=== PATIENT | male | born 2000 | race Caucasian/White ===

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

== ENCOUNTER 2018-09-21 14:06 | Emergency (ER) | payer BC ==
[~2018-09-21] VITALS: Ht 182.9 cm; Wt 88.6 kg
[2018-09-21] MEDS ORDERED: ASPIRIN 81 MG CHEW TABLET PO ONE (16:30)
[2018-09-21 16:51] LABS: BASO % 0.3 % (0.0-1.0); EOS # 0.1 10^3/uL (0.0-0.50); EOS % 0.8 % (0.0-3.0); HEMATOCRIT 45.9 % (42.0-52.0); LYMPH % 46.8 % (24.0-44.0); MEAN CORPUSCULAR HEMOGLOBIN 30.5 pg (27.0-33.0); MEAN CORPUSCULAR HGB CONC 34.9 g/dl (32.0-36.5); MEAN CORPUSCULAR VOLUME 87.6 fl (80.0-96.0); MONO # 0.4 10^3/uL (0.0-0.8); MONO % 6.3 % (0.0-5.0); NEUTROPHILS # 2.9 10^3/uL (1.8-7.7); NEUTROPHILS % 45.5 % (36.0-66.0); PLATELET COUNT, AUTOMATED 219 10^3/uL (150-450); RED BLOOD COUNT 5.24 10^6/uL (4.30-6.10); WHITE BLOOD COUNT 6.4 10^3/uL (4.0-10.0)
[2018-09-21 17:09] LABS: INR 1.07
[2018-09-21 17:11] LABS: AMPHETAMINES LEVEL URINE NEGATIVE (NEGATIVE); BARBITURATES URINE NEGATIVE (NEGATIVE); BENZODIAZEPINES URINE NEGATIVE (NEGATIVE); CANNABINOIDS URINE NEGATIVE (NEGATIVE); COCAINE METABOLITE URINE NEGATIVE (NEGATIVE); METHADONE URINE NEGATIVE (NEGATIVE); OPIATES URINE NEGATIVE (NEGATIVE); PHENCYCLIDINE URINE NEGATIVE (NEGATIVE)
--- NOTE | 2018-09-21 17:11 | REP ---
PA and lateral chest: Comparison is 05/13/2017. The lung arias are clear. The cardiac size is normal. The laly, mediastinum, and skeletal structures are unremarkable. Impression: Negative PA and lateral chest. There is no interval change. Electronically Signed by Selvin Weir MD 09/21/2018 05:01 P
[2018-09-21 17:22] LABS: ALBUMIN 4.6 GM/DL (3.2-5.2); ALT/SGPT 17 U/L (12-78); BILIRUBIN,DIRECT 0.1 MG/DL (0.0-0.2); BILIRUBIN,TOTAL 0.6 MG/DL (0.2-1.0); BLOOD UREA NITROGEN 17 MG/DL (7-18); CALCIUM LEVEL 9.5 MG/DL (8.5-10.1); CARBON DIOXIDE LEVEL 29 MEQ/L (21-32); CHLORIDE LEVEL 105 MEQ/L (98-107); CK-MB VALUE MASS < 1.0 NG/ML (<3.6); CPK CREATINE PHOSPHOKINASE 98 U/L (39-308); CREATININE FOR GFR 1.11 MG/DL (0.70-1.30); FREE T4 0.89 NG/DL (0.78-1.33); GLUCOSE, FASTING 87 MG/DL (70-100); MB/CK RELATIVE INDEX 1.02 (< OR =4); POTASSIUM SERUM 4.1 MEQ/L (3.5-5.1); SODIUM LEVEL 139 MEQ/L (136-145); TOTAL PROTEIN 7.5 GM/DL (6.4-8.2); TROPONIN I < 0.02 NG/ML (< 0.10)
[2018-09-21] MEDS ORDERED: HOLTER (17:41)
[2018-09-21 17:46] VITALS: BP 98/57
--- NOTE | 2018-09-22 21:17 | ECGEPIP ---
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
== END 2018-09-21 17:57 | disposition home or self-care (01) ==
LOC: M ED 14:06
DX: R00.2 Palpitations (principal); R07.89 Other chest pain; F17.210 Nicotine dependence, cigarettes, uncomplicated

== ENCOUNTER → 2018-09-21 | Outpatient (CLI) | payer BC ==
[~2018-09-21] MED LIST: HOLTER
--- NOTE | 2018-09-23 21:11 | HOLTMON ---
[facility] [place] Test Date: 2018-09-21 Pat Name: RAH GOODRICH Department: Room: - Gender: Gear Tester: Aliya Gill/SIENA WING : 2000 Requested By: GAEL AUGUST Order Number: [id number] Reading MD: Ye Arnold Interpretive Statements Predominantly sinus rhythm with heart rates ranging from 39 bpm to maximum of 129 bpm; average heart rate was 68 bpm. No atrial fibrillation. Rare PACs including one atrial couplet. No ventricular ectopy. Normal heart rhythm recording. Palpitations at 9:36 AM on 09/22/2018 correlated with sinus rhythm at 62 bpm. Electronically Signed On 09-23-2018 21:11:01 EDT by Ye Arnold
== END ==
LOC: M EKG 17:57
PROVIDERS: ATTEND Nurse Practitioner Family
DX: R00.2 Palpitations (principal)

== ENCOUNTER → 2019-07-20 | Outpatient (REF) | payer BC ==
[2019-07-20 13:48] LABS: H PYLORI QUALITATIVE IgG NEGATIVE (NEGATIVE)
== END ==
LOC: M LAB REF 12:34
PROVIDERS: ATTEND Internal Medicine
DX: K21.9 Gastro-esophageal reflux disease without esophagitis (principal)

== ENCOUNTER 2021-04-08 05:02 | Emergency (ER) | payer BC, SELFPAY ==
--- OUTSIDE RECORDS SUMMARY | 2021-04-08 05:06 | CCD ---
Author Author [facility] Organization [facility] Address Unknown Phone Unavailable Care Team Providers Care Post Doctoral Researcher Name Role Phone Maring, Charan PA Unavailable Unavailable Maring, Charan PA Unavailable Unavailable Maring, Charan PA Unavailable Unavailable Maring, Charan PA Unavailable Unavailable Maring, Charan PA Unavailable Unavailable Maring, Charan PA Unavailable Unavailable Maring, Charan PA Unavailable Unavailable Maring, Charan PA Unavailable Unavailable Maring, Charan PA Unavailable Unavailable Maring, Charan PA Unavailable Unavailable Maring, Charan PA Unavailable Unavailable Maring, Charan PA Unavailable Unavailable Maring, Charan PA Unavailable Unavailable Maring, Charan PA Unavailable Unavailable Maring, Charan PA Unavailable Unavailable Maring, Charan PA Unavailable Unavailable LETTIERE, A JESSICA PA Unavailable Unavailable LETTIERE, A JESSICA PA Unavailable Unavailable LETTIERE, A JESSICA PA Unavailable Unavailable LETTIERE, A JESSICA PA Unavailable Unavailable LETTIERE, A JESSICA PA Unavailable Unavailable LETTIERE, A JESSICA PA Unavailable Unavailable LETTIERE, A JESSICA PA Unavailable Unavailable LETTIERE, A JESSICA PA Unavailable Unavailable LETTIERE, A JESSICA PA Unavailable Unavailable LETTIERE, A JESSICA PA Unavailable Unavailable LETTIERE, A JESSICA PA Unavailable Unavailable LETTIERE, A JESSICA PA Unavailable Unavailable LETTIERE, A JESSICA PA Unavailable Unavailable LETTIERE, A JESSICA PA Unavailable Unavailable LETTIERE, A JESSICA PA Unavailable Unavailable LETTIERE, A JESSICA PA Unavailable Unavailable LETTIERE, A JESSICA PA Unavailable Unavailable LETTIERE, A JESSICA PA Unavailable Unavailable LETTIERE, A JESSICA PA Unavailable Unavailable LETTIERE, A JESSICA PA Unavailable Unavailable LETTIERE, A JESSICA PA Unavailable Unavailable LETTIERE, A JESSICA PA Unavailable Unavailable LETTIERE, A JESSICA PA Unavailable Unavailable LETTIERE, A JESSICA PA Unavailable Unavailable LETTIERE, A JESSICA PA Unavailable Unavailable LETTIERE, A JESSICA PA Unavailable Unavailable LETTIERE, A JESSICA PA Unavailable Unavailable LETTIERE, A JESSICA PA Unavailable Unavailable LETTIERE, A JESSICA PA Unavailable Unavailable LETTIERE, A JESSICA PA Unavailable Unavailable LETTIERE, A JESSICA PA Unavailable Unavailable Rodgers, C Katy DO Unavailable Unavailable Rodgers, C Katy DO Unavailable Unavailable Rodgers, C Katy DO Unavailable Unavailable Rodgers, C Katy DO Unavailable Unavailable Rodgers, C Katy DO Unavailable Unavailable Rodgers, C Katy DO Unavailable Unavailable Rodgers, C Katy DO Unavailable Unavailable Rodgers, C Katy DO Unavailable Unavailable Rodgers, C Katy DO Unavailable Unavailable Rodgers, C Katy DO Unavailable Unavailable Rodgers, C Katy DO Unavailable Unavailable Rodgers, C Katy DO Unavailable Unavailable Rodgers, C Katy DO Unavailable Unavailable Rodgers, C Katy DO Unavailable Unavailable Rodgers, C Katy DO Unavailable Unavailable Rodgers, C Katy DO Unavailable Unavailable Rodgers, C Katy DO Unavailable Unavailable Rodgers, C Katy DO Unavailable Unavailable Rodgers, C Katy DO Unavailable Unavailable Rodgers, C Katy DO Unavailable Unavailable Rodgers, C Katy DO Unavailable Unavailable Rodgers, C Katy DO Unavailable Unavailable Rodgers, C Katy DO Unavailable Unavailable Rodgers, C Katy DO Unavailable Unavailable Rodgers, C Katy DO Unavailable Unavailable Rodgers, C Katy DO Unavailable Unavailable Rodgers, C Katy DO Unavailable Unavailable Rodgers, C Katy DO Unavailable Unavailable Rodgers, C Katy DO Unavailable Unavailable Rodgers, C Katy DO Unavailable Unavailable Rodgers, C Katy DO Unavailable Unavailable Rodgers, C Katy DO Unavailable Unavailable Rodgers, C Katy DO Unavailable Unavailable Rodgers, C Katy DO Unavailable Unavailable Rodgers, C Katy DO Unavailable Unavailable Rodgers, C Katy DO Unavailable Unavailable Rodgers, C Katy DO Unavailable Unavailable Rodgers, C Katy DO Unavailable Unavailable Rodgers, C Katy DO Unavailable Unavailable Rodgers, C Katy DO Unavailable Unavailable Rodgers, C Katy DO Unavailable Unavailable Rodgers, C Katy DO Unavailable Unavailable Rodgers, C Katy DO Unavailable Unavailable Rodgers, C Katy DO Unavailable Unavailable Rodgers, C Katy DO Unavailable Unavailable Rodgers, C Katy DO Unavailable Unavailable Rodgers, C Katy DO Unavailable Unavailable Rodgers, C Katy DO Unavailable Unavailable Rodgers, C Katy DO Unavailable Unavailable Rodgers, C Katy DO Unavailable Unavailable Rodgers, C Katy DO Unavailable Unavailable Rodgers, C Katy DO Unavailable Unavailable Rodgers, C Katy DO Unavailable Unavailable Rodgers, C Katy DO Unavailable Unavailable Rodgers, C Katy DO Unavailable Unavailable Rodgers, C Katy DO Unavailable Unavailable DRAZEK, I JOSE PA Unavailable Unavailable DRAZEK, I JOSE PA Unavailable Unavailable DRAZEK, I JOSE PA Unavailable Unavailable DRAZEK, I JOSE PA Unavailable Unavailable DRAZEK, I JOSE PA Unavailable Unavailable DRAZEK, I JOSE PA Unavailable Unavailable DRAZEK, I JOSE PA Unavailable Unavailable DRAZEK, I JOSE PA Unavailable Unavailable DRAZEK, I JOSE PA Unavailable Unavailable DRAZEK, I JOSE PA Unavailable Unavailable DRAZEK, I JOSE PA Unavailable Unavailable DRAZEK, I JOSE PA Unavailable Unavailable DRAZEK, I JOSE PA Unavailable Unavailable DRAZEK, I JOSE PA Unavailable Unavailable DRAZEK, I JOSE PA Unavailable Unavailable DRAZEK, I JOSE PA Unavailable Unavailable DRAZEK, I JOSE PA Unavailable Unavailable DRAZEK, I JOSE PA Unavailable Unavailable DRAZEK, I JOSE PA Unavailable Unavailable DRAZEK, I JOSE PA Unavailable Unavailable DRAZEK, I JOSE PA Unavailable Unavailable DRAZEK, I JOSE PA Unavailable Unavailable DRAZEK, I JOSE PA Unavailable Unavailable DRAZEK, I JOSE PA Unavailable Unavailable DRAZEK, I JOSE PA Unavailable Unavailable DRAZEK, I JOSE PA Unavailable Unavailable DRAZEK, I JOSE PA Unavailable Unavailable DRAZEK, I JOSE PA Unavailable Unavailable DRAZEK, I JOSE PA Unavailable Unavailable DRAZEK, I JOSE PA Unavailable Unavailable Jennifer Wilson MD Unavailable Unavailable Jennifer Wilson MD Unavailable Unavailable Jennifer Wilson MD Unavailable Unavailable Jennifer Wilson MD Unavailable Unavailable Jennifer Wilson MD Unavailable Unavailable Jennifer Wilson MD Unavailable Unavailable Jennifer Wilson MD Unavailable Unavailable Jennifer Wilson MD Unavailable Unavailable Jennifer Wilson MD Unavailable Unavailable Jennifer Wilson MD Unavailable Unavailable Jennifer Wilson MD Unavailable Unavailable Jennifer Wilson MD Unavailable Unavailable Jennifer Wilson MD Unavailable Unavailable Jennifer Wilson MD Unavailable Unavailable Jennifer Wilson MD Unavailable Unavailable Jennifer Wilson MD Unavailable Unavailable Jennifer Wilson MD Unavailable Unavailable Jennifer Wilson MD Unavailable Unavailable Jennifer Wilson MD Unavailable Unavailable Jennifer Wilson MD Unavailable Unavailable Jennifer Wilson MD Unavailable Unavailable Jennifer Wilson MD Unavailable Unavailable Jennifer Wilson MD Unavailable Unavailable Jennifer Wilson MD Unavailable Unavailable Jennifer Wilson MD Unavailable Unavailable RACHEL GUTIERREZ MD Unavailable Unavailable RACHEL GUTIERREZ MD Unavailable Unavailable RACHEL GUTIERREZ MD Unavailable Unavailable RACHEL GUTIERREZ MD Unavailable Unavailable RACHEL GUTIERREZ MD Unavailable Unavailable RACHEL GUTIERREZ MD Unavailable Unavailable RACHEL GUTIERREZ MD Unavailable Unavailable RACHEL GUTIERREZ MD Unavailable Unavailable GUTIERREZRACHEL GUPTA MD Unavailable Unavailable GUTIERREZRACHEL GUPTA MD Unavailable Unavailable GUTIERREZRACHEL UGPTA MD Unavailable Unavailable GUTIERREZRACHEL GUPTA MD Unavailable Unavailable GUTIERREZRACHEL GUPTA MD Unavailable Unavailable GUTIERREZRACHEL GUPTA MD Unavailable Unavailable GUITERREZRACHEL GUPTA MD Unavailable Unavailable GUTIERREZRACHEL GUPTA MD Unavailable Unavailable GUTIERREZRACHEL GUPTA MD Unavailable Unavailable GUTIERREZRACHEL GUPTA MD Unavailable Unavailable GUTIERREZRACHEL GUPTA MD Unavailable Unavailable GUTIERREZRACHEL GUPTA MD Unavailable Unavailable GUTIERREZRACHEL GUPTA MD Unavailable Unavailable RACHEL GUTIERREZ MD Unavailable Unavailable RACHEL GUTIERREZ MD Unavailable Unavailable GUTIERREZRACHEL GUPTA MD Unavailable Unavailable GUTIERREZRACHEL GUPTA MD Unavailable Unavailable GUTIERREZRACHEL GUPTA MD Unavailable Unavailable GUTIERREZRACHEL GUPTA MD Unavailable Unavailable GUTIERREZRACHEL GUPTA MD Unavailable Unavailable GUTIERREZRACHEL GUPTA MD Unavailable Unavailable GUTIERREZRACHEL GUPTA MD Unavailable Unavailable GUTIERREZRACHEL GUPTA MD Unavailable Unavailable Roger Carrollopher PA-C Unavailable Unavailable Roger Carrollopher PA-C Unavailable Unavailable Roger Carrollopher PA-C Unavailable Unavailable Roger Carrollopher PA-C Unavailable Unavailable Roger Carrollopher PA-C Unavailable Unavailable Roger Carrollopher PA-C Unavailable Unavailable Roger Carrollopher PA-C Unavailable Unavailable Roger Carrollopher PA-C Unavailable Unavailable Roger Carrollopher PA-C Unavailable Unavailable Roger Carrollopher PA-C Unavailable Unavailable Roger Carrollopher PA-C Unavailable Unavailable Roger Carrollopher PA-C Unavailable Unavailable Carroll, M Christopher PA-C Unavailable Unavailable Carroll, M Christopher PA-C Unavailable Unavailable Carroll, M Christopher PA-C Unavailable Unavailable Carroll, M Christopher PA-C Unavailable Unavailable Carroll, M Christopher PA-C Unavailable Unavailable Carroll, M Christopher PA-C Unavailable Unavailable Carroll, M Christopher PA-C Unavailable Unavailable Carroll, M Christopher PA-C Unavailable Unavailable Carroll, M Christopher PA-C Unavailable Unavailable Carroll, M Christopher PA-C Unavailable Unavailable Carroll, M Christopher PA-C Unavailable Unavailable Carroll, M Christopher PA-C Unavailable Unavailable Carroll, M Christopher PA-C Unavailable Unavailable Carroll, M Christopher PA-C Unavailable Unavailable Re-disclosure Warning The records that you are about to access may contain information from federally-assisted alcohol or drug abuse programs. If such information is present, then the following federally mandated warning applies: This information has been disclosed to you from records protected by federal confidentiality rules (42 CFR part 2). The federal rules prohibit you from making any further disclosure of this information unless further disclosure is expressly permitted by the written consent of the person to whom it pertains or as otherwise permitted by 42 CFR part 2. A general authorization for the release of medical or other information is NOT sufficient for this purpose. The Federal rules restrict any use of the information to criminally investigate or prosecute any alcohol or drug abuse patient.The records that you are about to access may contain highly sensitive health information, the redisclosure of which is protected by Article 27-F of the [facility] Public Health law. If you continue you may have access to information: Regarding HIV / AIDS; Provided by facilities licensed or operated by the [facility] Office of Mental Health; or Provided by the [facility] Office for People With Developmental Disabilities. If such information is present, then the following [facility] mandated warning applies: This information has been disclosed to you from confidential records which are protected by state law. State law prohibits you from making any further disclosure of this information without the specific written consent of the person to whom it pertains, or as otherwise permitted by law. Any unauthorized further disclosure in violation of state law may result in a fine or detention sentence or both. A general authorization for the release of medical or other information is NOT sufficient authorization for further disc losure. Family History Family Member Name Family Member Gender Family Member Status Date o f Status Description Data Source(s) Unknown Unknown Problem [facility] ([facility]) Unknown Male Encounters Encounter Providers Location Date Indications Data Source(s ) Outpatient Attender: Jodie Wilson MD 0 02/18/2021 11:50:15 AM EDT - 02/18/2021 12:52:26 PM EDT [facility] ([facility]) Outpatient Attender: Charan MCKEON 01/11/20 04:27:18 PM EDT - 01/10/2021 05:08:39 PM EDT [facility] ([facility] ) Outpatient Attender: Devon Carroll PA-C 10/31/2020 04:54:04 PM EDT - 10/31/2020 05:37:06 PM EDT [facility] ([facility]) Office Visit Attender: JOSE MCKEON Physical Therapy 2020 08:00:00 PM EDT [facility] ([facility]) Outpatient Attender: Katy Rodgers DO 08/03 08:15:56 AM EST - 08/03/2020 08:43:31 AM EST [facility] ([facility] ) Office Visit Attender: RACHEL GUTIERREZ MD Physical Therapy 09:45:00 AM EST [facility] ([facility]) Outpatient Attender: JESSICA sales 03/02/2020 03:00:00 PM EDT [facility] ([facility]) Immunizations Vaccine Date Status Description Data Source(s) DIPHTHERIA,PERTUSSIS(ACELLULAR),TETANUS VACCINE 06/21/2020 1 2:00:00 AM EST completed [facility] Medications Medication Brand Name Start Date Product Form Dose Route Admi nistrative Instructions Pharmacy Instructions Status Indications Reaction Description Data Source(s) Fluticasone propionate 0.05 MG/ACTUAT Metered Dose [facility] 50 mcg/actuation FLUTICASONE PROPIONATE 02/18/2021 12:00:00 AM EDT spray,suspension 16 SPRAY TWO SPRAYS IN ECH NOSTRIL EVERY DAY SPRAY TWO SPRAYS IN ECH NOSTRIL EVERY DAY SOLD: 02/20/2021 [facility] 90 mcg/actuation 02/18/2021 12:00:00 AM EDT HFA aerosol inha ler 8 INHALE ONE TO TWO PUFFS BY MOUTH EVERY 4 HOURS NEEDED FOR WHEEZING INHALE ONE TO TWO PUFFS BY MOUTH EVERY 4 HOURS NEEDED FOR WHEEZING SOLD: 02/20/2021 [facility] 20 mg 02/18/2021 12:00:00 AM EDT tablet 10 TAKE ONE TABLET BY MOUTH TWICE A DAY FOR 5 DAYS TAKE ONE TABLET BY MOUTH TWICE A DAY FOR 5 DAYS SOLD: 2020 [facility] 20 mg 01/10/2021 12:00:00 AM EDT tablet 10 TAKE TWO TABLETS BY MOUTH EVERY DAY WITH FOOD TAKE TWO TABLETS BY MOUTH EVERY DAY WITH FOOD SOLD: 01/10/2021 [facility] 875 mg 01/10/2021 12:00:00 AM EDT tablet 20 TAKE ONE TABLET BY MOUTH EVERY 12 HOURS FOR 10 DAYS TAKE ONE TABLET BY MOUTH EVERY 12 HOURS FOR 10 DAYS SO LD: 01/10/2021 [facility] 50 mg 10/31/2020 12:00:00 AM EDT tablet 5 TAKE ONE TABLET BY MOUTH ONCE DAILY FOR 5 DAYS TAKE ONE TABLET BY MOUTH ONCE DAILY FOR 5 DAYS SOLD: 0 10/31/2020 [facility] 500 mg 10/31/2020 12:00:00 AM EDT tablet 20 TAKE ONE TABLET BY MOUTH EVERY 12 HOURS FOR 10 DAYS TAKE ONE TABLET BY MOUTH EVERY 12 HOURS FOR 10 DAYS SO LD: 10/31/2020 [facility] 300 mg 03/02/2020 12:00:00 AM EDT capsule 20 TAKE ONE CAPSULE BY MOUTH TWICE A DAY FOR 10 DAYS TAKE ONE CAPSULE BY MOUTH TWICE A DAY FOR 10 DAYS SOLD : 03/02/2020 [facility] No Active Medications 03/02/2020 12:00:00 AM EDT completed [facility] ([facility] cefdinir 300 MG Oral Capsule Cefdinir 03/02/2020 12:00:00 AM EDT ORAL active [facility] ([facility]) Insurance Providers Payer name Policy type / Coverage type Policy ID Covered democrat ID Covered democrat's relationship to shanks Policy Shanks Plan Information BC/BS [facility] (HMO) [id number] Family Dependent [id number] BC/BS o [facility] ([facility]) [id number] Family Dependent [id number] BC/BS [facility] ([facility]) [id number] Family Dependent [id number] Blue Shield Commercial [id number] Family Dependent [id number] Blue Shield Commercial [id number] Family Dependent [id number] BCBS/[employer] Commercial [id number] Family Dependent [id number] BC[employer] Commercial [id number] Family Dependent [id number] [facility] [id number] Family Dependent [id number] Blue Shield Commercial [id number] Blue Shield Commercial [id number] [employer] Commercial [id number] Family Dependent [id number] [employer] Commercial [id number] Family Dependent [id number] [place]/307 [id number] MO2 [id number] [place] P[place] 302/307 [id number] MO2 [id number] [employer] [facility] emp [id number] Employee [id number] [place]BS [place] P[place] 302/307 [id number] emp [id number] Employee [id number] [employer] Blue Cross and Blue Shield [place] Blue Cross/ Blue Shield [id number] Parent [id number] [employer] Blue Cross and Blue Shield [place] Blue Cross/B lue Shield [id number] Parent [id number] [employer] BCBS B [id number] C VYS [id number] [employer] BCBS B [id number] C [id number] [id number] [employer] BCBS B [id number] C [id number] ID IDENTIFICATION .[id number] Other Insurance .[id number] BCBS [place] 306/806 [id number] MO2 [id number] [employer] [id number] FA[address] [id number] [facility] [id number] FA2 [id number] [employer] O [id number] C [id number] Medicaid Medicaid [id number] Family Dependent [id number] Medicaid Medicaid [id number] Family Dependent [id number] [employer] Commercial [id number] Family Depend ent SELF PAY O S SELF PAY ONLY [id number] Problems, Conditions, and Diagnoses No Information Surgeries/Procedures Procedure Description Date Indications Data Source(s) MRI Upper Extremity Any Joint 08/17/2020 12:00:[address] [facility] ([facility]) RADEX SHOULDER COMPLETE MINIMUM 2 VIEWS 08/16/2020 12: 00:00 AM EST [facility] ([facility]) X-Ray Clavicle Complete 08/07/2020 12:00:00 AM EST [facility] ([facility]) X-Ray Clavicle Complete 08/07/2020 12:00:00 AM EST [facility] ([facility]) RADEX SHOULDER COMPLETE MINIMUM 2 VIEWS 08/07/2020 12: 00:00 AM EST [facility] ([facility]) X-Ray Clavicle Complete 08/07/2020 12:00:00 AM EST [facility] ([facility]) RADEX ANKLE COMPLETE MINIMUM 3 VIEWS 04/21/2020 12:00: 00 AM EST [facility] ([facility]) FX Medial Malleolus W/O Manipulation 03/28/2020 12:00: 00 AM EDT [facility] ([facility]) Results ID Date Data Source [id number] 02/18/2021 12:15:00 PM EDT [facility] Name Value Range Interpretation Code Description Data Theresa rce(s) Supporting Document(s) SARS-CoV-2 RNA Resp Ql ANDRES+probe NOT DETECTED [facility] This lab was ordered by DAT lyon and reported by DAT Restrepo. ID Date Data Source [id number] 01/10/2021 05:00:00 PM EDT [facility] Name Value Range Interpretation Code Description Data Theresa rce(s) Supporting Document(s) SARS-CoV-2 RNA Resp Ql ANDRES+probe NOT DETECTED [facility] This lab was ordered by DAT lyon and reported by DAT Restrepo. ID Date Data Source [id number] 06/16/2020 12:00:00 AM EST [facility] Rachel Gutierrez MD Patient Name: RAH GOODRICH [id number] [facility] Date of : 2000[place] [address] Date of Exam: 1P#: Fax: [phone] EXAM: MRI ANKLE RIGHT WITHOUT CONTRASTCLINICAL INFORMATION: Status post twisting injury.3T multiplanar MRI imaging of the right ankle was obtained using varioussequences.There are no prior right ankle MRI's for comparison.The tendons of the tibialis anterior, extensor hallucis and extensordigitorum muscles are intact and of normal appearing low signal throughout. The tendons of the tibialis posterior, flexor digitorum and flexorhallucis muscles are intact and of normal appearing low signal throughout. There is slight T2 hypersignal seen surrounding the tibialis anteriortendon at the level of the mid-talus. This is without frankly abnormalperitendinous fluid and this is without abnormal tendinous enlargement.This increased T2 signal is in the region of the deltoid ligament complex.The Achilles tendon is intact and of normal appearing low signalthroughout. The peroneal tendons are intact and of normal appearing lowsignal throughout. The anterior and posterior/inferior tibiofibularligaments are intact. The anterior and posterior talofibular ligaments areintact, however, there is some thickening and redundancy of the anteriortalofibular ligament. The calcaneofibular ligament is intact. Theligaments within the sinus tarsi are normal and the sinus tarsi fat signalis preserved. There is no evidence of an ankle joint effusion. Thechondral surfaces of the talar dome and tibial plafond are smooth andwithout abnormal chondral or subchondral signal. There is a heel valgusdeformity. The lateral talar process has a normal appearance. Thesubtalar joints are within normal limits.In the mid-body of the os calcis, there is a 2.1 x 1.4 x 2 cm sizedunicameral cyst.IMPRESSION:1. There is evidence of sprain of the deltoid ligament complex with edemaextending into the soft tissues surrounding an otherwise normal appearingposterior tibial tendon.2. Evidence of chronic change to the anterior talofibular ligament withoutevidence of acute derangement.3. Heel valgus deformity without other concomitant findings to suggesthindfoot impingement.4. There is unicameral cyst in the os calcis as described above. Thiscould make the os calcis susceptible to fracture due to its size andproximity to the lateral cortical margin of the mid-body of the os calcis.5. Other findings as described above.Accredited by the [employer] in MR.ELOISE Kerr/Abundio you for referring RAH GOODRICH to our office. Electronically Signed - MARLEY ZEE DO 06/16/20 17:10 Name Value Range Interpretation Code Description Data Theresa rce(s) Supporting Document(s) Procedure Social History Code Duration Value Status Description Data Source(s ) Smoking 03/02/2020 12:00:00 AM EDT Never Smoked Cigarettes com pleted [facility] Vital Signs ID Date Data Source UNK Name Value Range Interpretation Code Description Data Source(s) Body height 71.25 [in_i] 71.25 [in_i] [facility] ([facility] 5'11.25" Body temperature 96.1 [degF] 96.1 [degF] [facility] ([facility]) Body weight 212.25 [lb_av] 212.25 [lb_av] [facility] T ([facility]) Body mass index (BMI) [Ratio] 29.4 kg/m2 29.4 k g/m2 [facility] ([facility]) Body temperature 97.3 [degF] 97.3 [degF] [facility] ([facility]) Body height 72 [in_i] 72 [in_i] [facility] ([facility]) 6'0" Body weight 197.00 [lb_av] 197.00 [lb_av] [facility] T ([facility]) Body temperature 97.1 [degF] 97.1 [degF] [facility] ([facility] ) Body mass index (BMI) [Ratio] 26.7 kg/m2 26.7 k g/m2 [facility] ([facility]) Systolic blood pressure 117 mm[Hg] 117 mm[Hg] [facility] ([facility], [facility]) Heart rate 82 /min 82 /min [facility] ([facility], [facility]) Respiratory rate 12 /min 12 /min [facility] ( [facility]) Oxygen saturation in Arterial blood by Pulse oximetry 98 % 98 % [facility] ([facility], [facility]) Body temperature 98.2 [degF] 98.2 [degF] [facility] ([facility], [facility]) Diastolic blood pressure 74 mm[Hg] 74 mm[Hg] [facility] ([facility], [facility]) Body height 72 [in_i] 72 [in_i] [facility] ([facility], [facility]) 6'0" Body weight 195.00 [lb_av] 195.00 [lb_av] [facility] ([facility], [facility]) Body mass index (BMI) [Ratio] 26.4 kg/m2 26.4 k g/m2 [facility] ([facility])
[2021-04-08 05:54] LABS: BASO % 0.2 % (0.0-1.0); EOS % 0.2 % (0.0-3.0); HEMATOCRIT 43.6 % (42.0-52.0); HEMOGLOBIN 14.8 g/dl (13.5-17.5); LYMPH # 1.5 10^3/uL (1.5-5.0); MEAN CORPUSCULAR HGB CONC 33.9 g/dl (32.0-36.5); MEAN CORPUSCULAR VOLUME 91.4 fl (80.0-96.0); MONO # 0.3 10^3/uL (0.0-0.8); MONO % 4.8 % (2.0-8.0); NEUTROPHILS # 4.2 10^3/uL (1.5-8.5); NEUTROPHILS % 69.3 % (36.0-66.0); PLATELET COUNT, AUTOMATED 171 10^3/uL (150-450); RED BLOOD COUNT 4.77 10^6/uL (4.30-6.10); WHITE BLOOD COUNT 6.1 10^3/uL (4.0-10.0)
[2021-04-08] MEDS ORDERED: NS 1,000 ML IV ONE (06:00)
[2021-04-08 06:11] LABS: OSMOLALITY SERUM 338 MOSM/KG (275-295)
[2021-04-08 06:16] LABS: ACETAMINOPHEN LEVEL < 2.0 UG/ML (10.0-30.0); ALT/SGPT 37 U/L (12-78); BILIRUBIN,DIRECT 0.1 MG/DL (0.0-0.2); BILIRUBIN,TOTAL 0.3 MG/DL (0.2-1.0); BLOOD UREA NITROGEN 12 MG/DL (7-18); CALCIUM LEVEL 8.1 MG/DL (8.5-10.1); CARBON DIOXIDE LEVEL 27 MEQ/L (21-32); CHLORIDE LEVEL 110 MEQ/L (98-107); CPK CREATINE PHOSPHOKINASE 224 U/L (39-308); CREATININE FOR GFR 1.03 MG/DL (0.70-1.30); GLOMERULAR FILTRATION RATE > 60.0 (>60); GLUCOSE, FASTING 117 MG/DL (70-100); POTASSIUM SERUM 3.9 MEQ/L (3.5-5.1); SALICYLATE LEVEL < 1.7 MG/DL (5.0-30.0); SODIUM LEVEL 143 MEQ/L (136-145); THYROID STIMULATING HORMONE 0.552 uIU/ML (0.358-3.740); TOTAL PROTEIN 7.2 GM/DL (6.4-8.2)
--- OUTSIDE RECORDS SUMMARY | 2021-04-08 07:20 | CCD ---
Author Author [facility] Organization [facility] Address Unknown Phone Unavailable Care Team Providers Care Entry Table Operator Name Role Phone Maring, Charan PA Unavailable [...] Unavailable Unavailable Jennifer Wilson MD Unavailable Unavailable Jennfier Wilson MD Unavailable Unavailable Jennifer Wilson MD Unavailable Unavailable Jennifer Wlison MD Unavailable Unavailable Jennifer Wilson MD Unavailable [...] Unavailable RACHEL GUTIERREZ MD Unavailable Unavailable RACHEL GUTEIRREZ MD Unavailable Unavailable RACHEL GUTIERREZ MD Unavailable Unavailable RACHEL GUTIERREZ MD Unavailable Unavailable RACHEL GUTIERREZ MD Unavailable Unavailable GUTIERREZRACHEL GUPTA MD Unavailable Unavailable GUTIERREZRACHEL GUPTA MD Unavailable Unavailable GUTIERREZRACHEL GUPTA MD Unavailable Unavailable GUTIERREZRACHEL GUPTA MD Unavailable Unavailable GUTIERREZRACHEL GUPTA MD Unavailable Unavailable GUTIERREZRACHEL GUPAT MD Unavailable Unavailable GUTIERREZRACHEL GUPTA MD Unavailable Unavailable GUTIERREZRACHEL GUPTA MD Unavailable Unavailable GUTIERREZRACHEL GUPTA MD Unavailable Unavailable GUTIERREZRACHEL GUPTA MD Unavailable Unavailable GUTIERREZRACHEL GUPTA MD Unavailable Unavailable GUTIERREZRACHEL GUPTA MD Unavailable Unavailable GUTIERREZRACHEL GUPTA MD Unavailable Unavailable RACHEL GUTIERREZ MD Unavailable Unavailable RACHEL GUTIERREZ MD Unavailable Unavailable GUTIERREZRACHEL GUPTA MD Unavailable Unavailable GUTIERREZRACHEL GUPTA MD Unavailable Unavailable GUTIERREZRACHEL GPUTA MD Unavailable Unavailable GUTIERREZRACHEL GUPTA MD Unavailable [...] is protected by Article 27-F of the [facility] Public Health law. If you continue you may have access to information: Regarding HIV / AIDS; Provided by facilities licensed or operated by the [facility] Office of Mental Health; or Provided by the [facility] Office for People With Developmental Disabilities. If such information is present, then the following [facility] mandated warning applies: This information has been [...] law may result in a fine or nursing home sentence or both. A general authorization for [...] ([facility]) Outpatient Attender: Charan MCEKON 01/11/20 04:27:18 PM EDT - 01/10/2021 05:08:39 PM EDT [facility] ([facility] ) Outpatient Attender: Devon Carroll PA-C 10/31/2020 04:54:04 PM EDT - 10/31/2020 05:37:06 PM EDT [facility] ([facility]) Office Visit Attender: JOSE MCKEON Physical Therapy 2020 08:00:00 PM EDT [facility] ([facility]) Outpatient Attender: Katy Rodgers DO 08/03 08:15:56 AM EST - 08/03/2020 08:43:31 AM EST [facility] ([facility] ) Office Visit Attender: RACHEL GUTIERREZ MD Physical Therapy 09:45:00 AM EST [facility] ([facility]) Outpatient Attender: JESSICA sales 03/02/2020 03:00:00 PM EDT [facility] ([facility]) Immunizations Vaccine Date Status Description Data Source(s) DIPHTHERIA,PERTUSSIS(ACELLULAR),TETANUS VACCINE 06/21/2020 1 2:00:00 AM EST completed [facility] Medications Medication Brand Name Start Date Product Form Dose Route Admi nistrative Instructions Pharmacy Instructions Status Indications Reaction Description Data Source(s) Fluticasone propionate 0.05 MG/ACTUAT Metered Dose [facility] [place] 50 mcg/actuation FLUTICASONE PROPIONATE 02/18/2021 12:00:00 AM [...] Medications 03/02/2020 12:00:00 AM EDT completed [facility] ([facility] cefdinir 300 MG Oral Capsule Cefdinir 03/02/2020 12:00:00 AM EDT ORAL active [facility] ([facility]) Insurance Providers Payer name Policy type / Coverage type Policy ID Covered libertarian ID Covered libertarian's relationship to shanks Policy Shanks Plan Information BC/BS [facility] Health Maintenance Organization (HMO) [id number] Family Dependent [id number] BC/BS o [facility] [place] [place] [id number] Family Dependent [id number] BC/BS [facility] [place] [place] [id number] Family Dependent [id number] Blue Shield Commercial [id number] Family Dependent [id number] Blue Shield Commercial [id number] Family Dependent [id number] BCBS/[employer] Commercial [id number] Family Dependent [id number] BCBS/[employer] Commercial [id number] Family Dependent [id number] [facility] [id number] Family Dependent [id number] Blue Shield Commercial [id number] .[id number] Blue Shield Commercial [id number] [employer] Commercial [id number] Family Dependent [id number] [employer] Commercial [id number] Family Dependent [id number] [place]/307 [id number] MO2 [id number] [place] 302/307 [id number] MO2 [id number] [employer] [facility] emp [id number] Employee [id number] [place]BS [place] P[place] 302/307 [id number] [employer] emp [id number] Employee [id number] [employer] Blue Cross and Blue Shield [place] Blue Cross/ Blue Shield [id number] Parent [id number] [employer] Blue Cross and Blue Shield - [place] Blue Cross/B lue Shield [id number] Parent [id number] [employer] BCBS B [id number] C VYS [id number] [employer] BCBS B [id number] C VYA [id number] [employer] BCBS B [id number] C VYA [id number] ID IDENTIFICATION .[id number] Other Insurance .[id number] BCBS OF [place] 306/806 [id number] MO2 [id number] [employer] [id number] [facility] MEDICAL CLAIMS [id number] [employer] O [id number] C [id number] Medicaid Medicaid [id number] Family Dependent [id number] Medicaid Medicaid [id number] Family Dependent [id number] [employer] Commercial [id number] Family Depend ent SELF PAY O S SELF PAY ONLY [id number] Problems, Conditions, and Diagnoses No Information Surgeries/Procedures Procedure Description Date Indications Data Source(s) MRI Upper Extremity Any Joint 08/17/2020 12:00:[address] [facility] ([facility]) RADEX SHOULDER COMPLETE MINIMUM 2 VIEWS 08/16/2020 12: 00:00 AM EST [facility] ([facility]) X-Ray Clavicle Complete 08/07/2020 12:00:00 AM EST [facility] ([facility]) X-Ray Clavicle Complete 08/07/2020 12:00:00 AM EST [facility] ([facility]) RADEX SHOULDER COMPLETE MINIMUM 2 VIEWS 08/07/2020 12: 00:00 AM EST [facility] ([facility]) X-Ray Clavicle Complete 08/07/2020 12:00:00 AM EST [facility] ([facility]) RADEX ANKLE COMPLETE MINIMUM 3 VIEWS 04/21/2020 12:00: 00 AM EST [facility] ([facility]) FX Medial Malleolus W/O Manipulation 03/28/2020 12:00: 00 AM EDT [facility] ([facility]) Results ID Date Data Source [id number] 02/18/2021 12:15:00 PM EDT [facility] Name Value Range Interpretation Code Description Data Theresa rce(s) Supporting Document(s) SARS-CoV-2 RNA Resp Ql ANDRES+probe NOT DETECTED [facility] This lab was ordered by DAT lyon and reported by DAT Restrepo. ID Date Data Source [id number] 01/10/2021 05:00:00 PM EDT [facility] Name Value Range Interpretation Code Description Data Theresa rce(s) Supporting Document(s) SARS-CoV-2 RNA Resp Ql ANDRES+probe NOT DETECTED [facility] This lab was ordered by DAT lyon and reported by DAT Restrepo. ID Date Data Source [id number] 06/16/2020 12:00:00 AM EST [facility] Rachel Gutierrez MD Patient Name: RHA GOODRICH [id number] [facility] Date of : 2000[place] [address] Date of Exam: 1P#: Fax: [phone] EXAM: [...] Other findings as described above.Accredited by the [employer] in MR.ELOISE Kerr/Abundio you for referring RAH GOODRICH to our office. Electronically Signed - MARLEY ZEE DO 06/16/20 17:10 Name Value Range Interpretation Code Description Data Theresa rce(s) Supporting Document(s) Procedure Social History Code Duration Value Status Description Data Source(s ) Smoking 03/02/2020 12:00:00 AM EDT Never Smoked Cigarettes com pleted Never Smoked Cigarettes [facility], [facility]) Vital Signs ID Date Data Source UNK Name Value Range Interpretation Code Description Data Source(s) Body height 71.25 [in_i] 71.25 [in_i] [facility] ([facility] 5'11.25" Body weight 212.25 [lb_av] 212.25 [lb_av] [facility] ([facility]) Body mass index (BMI) [Ratio] 29.4 kg/m2 29.4 k g/m2 [facility] ([facility]) Body temperature 96.1 [degF] 96.1 [degF] [facility] ([facility]) Body temperature 97.3 [degF] 97.3 [degF] [facility] ([facility]) Body temperature 97.1 [degF] 97.1 [degF] [facility] ([facility]) Body height 72 [in_i] 72 [in_i] [facility] ([facility]) 6'0" Body weight 197.00 [lb_av] 197.00 [lb_av] [facility] ([facility] Body mass index (BMI) [Ratio] 26.7 kg/m2 26.7 k g/m2 [facility] ([facility]) Systolic blood pressure 117 mm[Hg] 117 mm[Hg] [facility], [facility]) Diastolic blood pressure 74 mm[Hg] 74 mm[Hg] [facility] ([facility], [facility]) Heart rate 82 /min 82 /min [facility] ([facility] Respiratory rate 12 /min 12 /min [facility] ( [facility], [facility]) Oxygen saturation in Arterial blood by Pulse oximetry 98 % 98 % [facility] ([facility], [facility]) Body temperature 98.2 [degF] 98.2 [degF] [facility] ([facility], [facility]) Body weight 195.00 [lb_av] 195.00 [lb_av] [facility], [facility]) Body height 72 [in_i] 72 [in_i] [facility] ([facility], [facility]) 6'0" Body mass index (BMI) [Ratio] 26.4 kg/m2 26.4 k g/m2 [facility] ([facility])
[2021-04-08 08:18] LABS: AMPHETAMINES LEVEL URINE NEGATIVE (NEGATIVE); BARBITURATES URINE NEGATIVE (NEGATIVE); BENZODIAZEPINES URINE NEGATIVE (NEGATIVE); CANNABINOIDS URINE POSITIVE (NEGATIVE); COCAINE METABOLITE URINE NEGATIVE (NEGATIVE); METHADONE URINE NEGATIVE (NEGATIVE); OPIATES URINE NEGATIVE (NEGATIVE); PHENCYCLIDINE URINE NEGATIVE (NEGATIVE)
[2021-04-08 09:00] VITALS: BP 118/76
--- NOTE | 2021-04-09 05:43 | ECGEPIP ---
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
== END 2021-04-08 09:14 | disposition home or self-care (01) ==
LOC: M ED 05:02
DX: R00.2 Palpitations (principal); F10.188 Alcohol abuse with other alcohol-induced disorder; F12.188 Cannabis abuse with other cannabis-induced disorder; F17.200 Nicotine dependence, unspecified, uncomplicated

== ENCOUNTER 2024-12-26 16:44 | Emergency (ER) | payer BC ==
[~2024-12-26] VITALS: Ht 182.9 cm; Wt 95.7 kg
[2024-12-26] MEDS: KETOROLAC 30 MG/ML 1 ML VIAL IM ONE (19:10)
[2024-12-26] MEDS: ACETAMINOPHEN 325 MG TAB PO ONE (19:11)
[2024-12-26] MEDS ORDERED: METH-1165 PO (20:59)
[2024-12-26] MEDS ORDERED: NAPR-837 PO (20:59)
[2024-12-26 21:05] VITALS: BP 134/75; TEMP 97.6; O2SAT 96
== END 2024-12-26 21:06 | disposition home or self-care (01) ==
LOC: M ED 16:44
DX: M62.838 Other muscle spasm (principal); Z79.899 Other long term (current) drug therapy
CPT/HCPCS: 72125; 96372; 99283; J1885